=== PATIENT | female | born 1940 | race Caucasian/White ===

== ENCOUNTER 2016-10-09 15:00 | Day surgery (SDC) | payer OTHER, SELFPAY ==
--- NOTE | ~2016-10-09 | EGD ---
EGD REPORT [facility] [address] [place] [address] NAME: PATTI DIAZ : 44 STATUS : REG [facility]#: [id number] AGE: 76 ADM/REG DATE : 10/09/16 MR#: [id number] REPORT SERV DATE: 10/09/16 DICTATED BY: DATE: REPORT STATUS : Draft TRANSCRIBED BY: [employer] DATE: 10/09/16 [facility] Patient Name: Patti Diaz Date of : 1940 Attending MD: LATA REILLY MD Procedure Date No Time: 10/09/2016 Procedure: Upper GI endoscopy Indications: Dysphagia, Odynophagia Referring MD: FRANK MACE Medicines: Propofol per Anesthesia Complications: No immediate complications. Procedure: Pre-Anesthesia Assessment: - ASA Grade Assessment: IV - A patient with severe systemic disease that is a constant threat to life. After obtaining informed consent, the endoscope was passed under direct vision. Throughout the procedure, the patient's blood pressure, pulse, and oxygen saturations were monitored continuously. The GIF [id number] was introduced through the mouth, and advanced to the second part of duodenum. The upper GI endoscopy was accomplished without difficulty. The patient tolerated the procedure well. Findings: Three cratered esophageal ulcers with no bleeding and no stigmata of recent bleeding were found 35 cm from the incisors. The largest lesion was 6 mm in largest dimension. Biopsies were taken with a cold forceps for histology. Abnormal motility was noted in the esophagus. There is spasticity of the esophageal body. The distal esophagus/lower esophageal sphincter is spastic, but gives up passage to the endoscope. Tertiary peristaltic waves are noted. A small hiatus hernia was present. The examined duodenum was normal. A non-bleeding diverticulum with a small opening and no stigmata of recent bleeding was found in the lower third of the esophagus. Impression: - Non-bleeding esophageal ulcers. Biopsied. Query pill induced vs infectious. - Esophageal motility disorder. - Hiatus hernia. - Normal examined duodenum. 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 Recommendation: - Await pathology results. EGD REPORT [address] [address] NAME: PATTI DIAZ : [birth year] STATUS : REG [facility] [place] PAT#: [id number] AGE: 76 ADM/REG DATE : 10/09/16 MR#: [id number] REPORT SERV DATE: 10/09/16 DICTATED BY: DATE: REPORT STATUS : Draft TRANSCRIBED BY: [employer] DATE: 10/09/16 - Continue Nexium. - Begin Bentyl 10 mg twice/day. Procedure Code(s): --- Professional --- 46550, Esophagogastroduodenoscopy, flexible, transoral; with biopsy, single or multiple Diagnosis Code(s): --- Professional --- K22.10, Ulcer of esophagus without bleeding K22.4, Dyskinesia of esophagus K44.9, Diaphragmatic hernia without obstruction or gangrene R13.10, Dysphagia, unspecified CPT copyright 2013 [employer]. All rights reserved. The codes documented in this report are preliminary and upon outpatient coder review may be revised to meet current compliance requirements. LATA REILLY MD 10/09/2016 4:46 PM This report has been signed electronically. Number of Addenda: 0 Note Initiated On: 10/09/2016 4:26 PM [address] [place] [address]
[~2016-10-09 15:00] MED LIST: ACCUNEB INH; ADVAIR INH; ADVAIR100 INH; ALBUTEROL5 INH; AMILOR/HCTZ1 TAB PO; AMOXIL875 PO; ASAB PO; ATV.5 PO; ATV1 PO; BACDS PO; BUM1 PO; GLUCPH PO; HUMIBID1200 MG PO; IND25 PO; KDUR10 PO; KLOR-CON M2020 MEQ PO; L20 PO; LEVAQUIN750 MG PO; LOP25 PO; LOP50 PO; MAGOX4 PO; MICRO-K10 MEQ PO; MYCOSCROI TOP; NEUR400 PO; NEXIUM40 PO; NICODERM C21 MG/241 TOP; NORCO1 TA2; NORCO1 TA2 PO; OMNICEF300 PO; P10; P20 PO; PRAVAC PO; PRAVACHOL40 MG PO; PREDNISONE2.5 MG PO; PROAIR HFA INH; PROVENTSOL INH; SPIRIVA INH; STERAPDS12; STERAPRED DS10 MG; SYMBICORT 160/41 INH INH; SYSTANE ULTR OP; VERELAN180 MG PO; VITAMIN D2000 UNIT PO; ZAROX2.5B PO; ZITHROMAX500 MG PO
[2016-11-12] MEDS ORDERED: GLUCPH PO (23:31)
[2016-11-12] MEDS ORDERED: LAN125 PO (23:31)
[2016-11-12] MEDS ORDERED: NEUR400 PO (23:32)
[2016-11-12] MEDS ORDERED: KLOR-CON M2020 MEQ PO (23:32)
[2016-11-12] MEDS ORDERED: BENTYL10 PO (23:33)
[2016-11-12] MEDS ORDERED: NORCO1 TA2 PO (23:33)
[2016-11-12] MEDS ORDERED: NEXIUM40 PO (23:34)
[2016-11-12] MEDS ORDERED: MUCINEX1200 MG PO (23:34)
[2016-11-12] MEDS ORDERED: PRAVACHOL40 MG PO (23:36)
[2016-11-12] MEDS ORDERED: ZAROX2.5B PO (23:36)
[2016-11-12] MEDS ORDERED: ALBUTEROL5 INH (23:37)
[2016-11-12] MEDS ORDERED: SYMBICORT INH (23:38)
[2016-11-12] MEDS ORDERED: [UNRECOGNIZED DRUG - OTHER] PO (23:39)
[2016-11-12] MEDS ORDERED: ATV.5 PO (23:39)
[2016-11-18] MEDS ORDERED: FLONASE NAS (11:56)
[2016-11-18] MEDS ORDERED: P10 PO (11:58)
[2016-12-04] MEDS ORDERED: LAN125 PO (09:05)
[2016-12-04] MEDS ORDERED: BUM1 PO (09:06)
[2016-12-04] MEDS ORDERED: GLUCPH PO (09:09)
[2016-12-04] MEDS ORDERED: KLOR-CON M2020 MEQ PO (09:10)
[2016-12-04] MEDS ORDERED: BENTYL10 PO ×2 (09:13→19:37)
[2016-12-04] MEDS ORDERED: PREDNISONE2.5 MG PO (09:13)
[2016-12-04] MEDS ORDERED: METOPROLOL PO (09:16)
[2016-12-04] MEDS ORDERED: NEXIUM40 PO (09:21)
[2016-12-04] MEDS ORDERED: HYDROCODONE PO (09:23)
[2016-12-04] MEDS ORDERED: ASAB PO (09:25)
[2016-12-04] MEDS ORDERED: NEUR400 PO ×2 (09:25→19:39)
[2016-12-04] MEDS ORDERED: PRAV10 PO (09:28)
[2016-12-04] MEDS ORDERED: ATV.5 PO ×2 (09:28→19:39)
[2016-12-04] MEDS ORDERED: [UNRECOGNIZED DRUG - OTHER] PO ×2 (09:32→09:37)
[2016-12-04] MEDS ORDERED: CHOLECALCIFEROL PO (09:33)
[2016-12-04] MEDS ORDERED: MAGNESIUM PO (09:33)
[2016-12-04] MEDS ORDERED: PRAVASTATIN PO (09:38)
[2016-12-04] MEDS ORDERED: PRAVACHOL40 MG PO (11:55)
[2016-12-04] MEDS ORDERED: AMILOR/HCTZ1 TAB PO (19:38)
[2016-12-04] MEDS ORDERED: FLONASE NAS (19:38)
[2016-12-04] MEDS ORDERED: ALBUTEROL0.083 % INH (19:38)
[2016-12-04] MEDS ORDERED: PROAIR HFA INH (19:38)
[2016-12-04] MEDS ORDERED: ADVAIR INH (19:39)
[2016-12-04] MEDS ORDERED: LOP25 PO (19:40)
[2016-12-04] MEDS ORDERED: KLOR-CON M1010 MEQ PO (19:40)
[2016-12-04] MEDS ORDERED: ZAROX2.5B PO (19:41)
[2016-12-04] MEDS ORDERED: NORCO1 TA2 PO (19:41)
[2016-12-10] MEDS ORDERED: OMNICEF300 PO (13:03)
[2016-12-10] MEDS ORDERED: FLUCON1 PO (13:04)
[2016-12-10] MEDS ORDERED: HUMI PO (13:05)
[2016-12-10] MEDS ORDERED: ALTA2.5 PO (13:07)
== END 2016-10-09 23:59 | disposition home or self-care (01) ==
LOC: DMU 15:00
PROVIDERS: Internal Medicine Gastroenterology
PROC: 0DB58ZX Excision of Esophagus, Via Natural or Artificial Opening Endoscopic, Diagnostic (ICD-10-PCS; principal; 2016-10-09 16:30)
DX: K22.10 Ulcer of esophagus without bleeding (principal); K22.4 Dyskinesia of esophagus; K21.9 Gastro-esophageal reflux disease without esophagitis; K44.9 Diaphragmatic hernia without obstruction or gangrene; R13.10 Dysphagia, unspecified; E11.9 Type 2 diabetes mellitus without complications; F17.210 Nicotine dependence, cigarettes, uncomplicated; I42.9 Cardiomyopathy, unspecified; I21.3 ST elevation (STEMI) myocardial infarction of unspecified site; I71.4 Abdominal aortic aneurysm, without rupture; F41.9 Anxiety disorder, unspecified; J44.9 Chronic obstructive pulmonary disease, unspecified; J45.909 Unspecified asthma, uncomplicated; G47.30 Sleep apnea, unspecified; G57.93 Unspecified mononeuropathy of bilateral lower limbs; M19.90 Unspecified osteoarthritis, unspecified site; Z99.81 Dependence on supplemental oxygen; Z90.710 Acquired absence of both cervix and uterus; Z98.41 Cataract extraction status, right eye; Z98.42 Cataract extraction status, left eye; Z96.1 Presence of intraocular lens; Z87.01 Personal history of pneumonia (recurrent); Z97.2 Presence of dental prosthetic device (complete) (partial); Z79.891 Long term (current) use of opiate analgesic; Z79.84 Long term (current) use of oral hypoglycemic drugs; Z79.52 Long term (current) use of systemic steroids; Z79.51 Long term (current) use of inhaled steroids; Z79.899 Other long term (current) drug therapy
CPT/HCPCS: 82962; 88305